=== PATIENT | female | born 1970 | race Caucasian/White ===

== ENCOUNTER → 2016-05-13 | Outpatient (CLI) | payer BC ==
[2016-05-13 12:53] LABS: ABSOLUTE LYMPHOCYTES (AUTO) 1.1 10^3/uL (0.5-4.7); ABSOLUTE MONOCYTES (AUTO) 0.3 10^3/uL (0.1-1.4); ABSOLUTE NEUT (AUTO) 4.3 10^3/uL (1.7-8.2); BASOPHILS % (AUTO) 0.4 % (0-2); EOSINOPHILS % (AUTO) 0.6 % (0-6); HEMATOCRIT 36.2 % (36.0-47.0); HEMOGLOBIN 12.4 g/dL (12.0-15.5); LYMPHOCYTES % (AUTO) 19.5 % (13-45); MEAN CORPUSCULAR HEMOGLOBIN 28.3 pg (27.0-33.4); MEAN CORPUSCULAR HGB CONC 34.4 g/dL (32.0-36.0); MEAN CORPUSCULAR VOLUME 82 fl (80-97); MONOCYTES % (AUTO) 5.8 % (3-13); SEGMENTED NEUTROPHILS % (AUTO) 73.7 % (42-78); WHITE BLOOD COUNT 5.9 10^3/uL (4.0-10.5)
[2016-05-13 13:12] LABS: ALANINE AMINOTRANSFERASE 34 U/L (9-52); ALKALINE PHOSPHATASE 53 U/L (38-126); ANION GAP 14 (5-19); ASPARTATE AMINO TRANSFERASE 55 U/L (14-36); BILIRUBIN,DIRECT 0.2 mg/dL (0.0-0.4); BILIRUBIN,TOTAL 0.7 mg/dL (0.2-1.3); BLOOD UREA NITROGEN 19 mg/dL (7-20); CARBON DIOXIDE 28 mmol/L (22-30); CHLORIDE 98 mmol/L (98-107); CREATININE RESULT 0.66 mg/dL (0.52-1.25); GLUCOSE 108 mg/dL (75-110); LIPASE 43.2 U/L (23-300); POTASSIUM 3.8 mmol/L (3.6-5.0); SODIUM 139.9 mmol/L (137-145); TOTAL PROTEIN 7.8 g/dL (6.3-8.2)
== END ==
LOC: LAB 12:33
PROVIDERS: ATTEND Obstetrics & Gynecology
DX: K52.9 Noninfective gastroenteritis and colitis, unspecified (principal)
CPT/HCPCS: 36415; 80053; 83690; 85025

== ENCOUNTER 2016-06-09 20:30 | Emergency (ER) | payer BC ==
[2016-06-09] MEDS ORDERED: LORAZEPAM 1 MG TABLET PO ONE ×2 (20:53→23:35)
[2016-06-09] MEDS ORDERED: NORMAL SALINE 1000 ML 1,000 ML IV PRN (20:53)
--- NOTE | 2016-06-09 21:00 | ER Document Report ---
ED General - General Chief Complaint: Probable Seizure Stated Complaint: SUGAR PROBLEM Time seen by provider: 20:54 Mode of Arrival: Medic Information source: Patient, Emergency Med Personnel Notes: This is a 46-year-old female with a history of hypertension (verapamil, Azilsartan, chlorthalidone), chronic back pain (baclofen, tramadol) brought in by EMS after a seizure at home. The patient's was at the scene and states that the patient all of a sudden dropped the remote sat forward and started to stare and was nonresponsive and then started having shaking. She was confused after the second episode which lasted 3 minutes. EMS arrived at the scene and found that the patient had a blood sugar of 70 and she was given 30 g of glucose. TRAVEL OUTSIDE OF THE [place] IN LAST 30 DAYS: No - HPI Onset: Just prior to arrival Onset/Duration: Gradual Quality of pain: No pain Severity: None Pain Level: Denies Associated symptoms: denies: Chest pain, Fever, Shortness of breath Exacerbated by: Denies Relieved by: Denies Similar symptoms previously: No Recently seen / treated by doctor: No - Related Data Allergies/Adverse Reactions: No Known Allergies Allergy (Verified 06/08/12 17:17) Past Medical History - General Information source: Patient - Social History Smoking Status: Never Smoker Cigarette use (# per day): No Chew tobacco use (# tins/day): No Frequency of alcohol use: None Drug Abuse: None Lives with: Family Family History: Reviewed & Not Pertinent Patient has suicidal ideation: No Patient has homicidal ideation: No - Past Medical History Cardiac Medical History: Reports: Hx Hypertension Denies: Hx Coronary Artery Disease, Hx Heart Attack Pulmonary Medical History: Denies: Hx Asthma, Hx Bronchitis, Hx COPD, Hx Pneumonia Neurological Medical History: Denies: Hx Cerebrovascular Accident, Hx Seizures Endocrine Medical History: Reports: None Renal/ Medical History: Reports: None Malignancy Medical History: Reports: None GI Medical History: Reports: None Musculoskeltal Medical History: Denies Hx Arthritis Psychiatric Medical History: Reports: None Traumatic Medical History: Reports: None Past Surgical History: Reports: Hx Section - x 2. Denies: Hx Pacemaker - Immunizations Immunizations up to date: Yes Hx Diphtheria, Pertussis, Tetanus Vaccination: Yes Review of Systems - Review of Systems Constitutional: denies: Chills, Fever EENT: No symptoms reported Cardiovascular: No symptoms reported Respiratory: No symptoms reported Gastrointestinal: No symptoms reported Genitourinary: No symptoms reported Female Genitourinary: No symptoms reported Musculoskeletal: No symptoms reported Skin: No symptoms reported Hematologic/Lymphatic: No symptoms reported Neurological/Psychological: See HPI Physical Exam - Vital signs Vitals: Temp Resp 98.1 F 20 06/09/16 20:43 06/09/16 20:43 Notes: Physical exam: GENERAL: 46-year-old female, alert and oriented 3, appears anxious HEAD: Atraumatic, normocephalic. EYES: Pupils equal round and reactive to light, extraocular movements intact, sclera anicteric, conjunctiva are normal. ENT: TMs normal, nares patent, oropharynx clear without exudates. Moist mucous membranes. NECK: Normal range of motion, supple without lymphadenopathy or JVD. LUNGS: Breath sounds clear to auscultation bilaterally and equal. No wheezes rales or rhonchi. HEART: Regular rate and rhythm without murmurs, rubs or gallops. ABDOMEN: Soft, normoactive bowel sounds. No tenderness to palpation. No guarding, no rebound. No masses appreciated. EXTREMITIES: Normal range of motion, no pitting or edema. No clubbing or cyanosis. NEUROLOGICAL: Cranial nerves II through XII grossly intact. Normal speech, moving all extremities PSYCH: Anxious SKIN: Warm, Dry, normal turgor, no rashes or lesions noted. 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 She remained in sinus rhythm is been doing fine. I have been in the room reevaluating her several times and she is stable. She is somewhat anxious about having any further seizures. I've had multiple long discussions with her and her at the bedside. The patient is quite adamant about not stopping the tramadol or the baclofen which she's been on a long time. I did tell them that these both contributed to seizures and that ultimately I would like her pain specialist to see if they can gradually wean the patient off of this and switch them to different pain medicines and muscle relaxants. Both of these are associated with a acute withdrawal if stopped abruptly. In the meantime, I will treat her with some Ativan which will help with anxiety , protect against further seizures and will also assist as a muscle relaxer. The patient was given IV magnesium to replace her magnesium and oral potassium to replace that. - Vital Signs Vital signs: Temp Pulse Resp BP Pulse Ox 98.1 F 19 95 06/09/16 20:43 06/09/16 22:00 06/09/16 22:00 - Laboratory Result Diagrams: 06/09/16 20:40 06/09/16 20:40 Laboratory results interpreted by me: 06/09/16 06/09/16 06/09/16 20:40 20:40 21:51 Hgb 11.7 L Hct 34.6 L Potassium 3.1 L Chloride 96 L Glucose 155 H Magnesium 1.5 L - Diagnostic Test Radiology reviewed: Image reviewed, Reports reviewed - Head CT shows no acute cranial process. Discharge - Discharge Clinical Impression: seizure Condition: Stable Disposition: HOME, SELF-CARE Additional Instructions: As we discussed, Your CAT scan of the head looked good. Your chest x-ray was normal Your kidney function tests looked great. You did have mildly low electrolytes potassium and magnesium and these were replaced. You were followed on the heart monitor and that looked good. Recommendations: 1. I would like you to call the [place] [facility] first thing in the morning. Tell them that you were seen in the emergency room after a seizure and the ER doctor would like you reevaluated to see if you can be switched off of the tramadol and placed to a alternative pain medicine because of the seizure risk of the tramadol. The muscle relaxer (baclofen) can also lower the seizure threshold and can contribute to his seizure. They can also reassess you regarding alternatives to baclofen. Both these medicines are associated with acute withdrawal symptoms if you stop them suddenly, therefore I don't want you to stop them altogether. If you can cut down on the quantity of tramadol, this may be helpful. 2. I would follow-up with Dr. Oscar early next week and bring a copy of today's CT, x-ray and lab tests with you when you go. 3. I am going to prescribe some Ativan short-term which will help with your anxiety. This medicine is also protective with seizures which is a positive. Finally, it is also a muscle relaxer and can help with that. Prescriptions: Lorazepam [Ativan 1 mg Tablet] 1 tab PO TID #20 tablet Referrals: DANELLE OSCAR MD [Primary Care Provider] - Follow up as needed JERALD ARRIAGA MD [ACTIVE STAFF] - Follow up as needed
[2016-06-09 21:07] LABS: ABSOLUTE LYMPHOCYTES (AUTO) 1.3 10^3/uL (0.5-4.7); ABSOLUTE MONOCYTES (AUTO) 0.4 10^3/uL (0.1-1.4); ABSOLUTE NEUT (AUTO) 4.1 10^3/uL (1.7-8.2); BASOPHILS % (AUTO) 0.4 % (0-2); EOSINOPHILS % (AUTO) 0.7 % (0-6); HEMATOCRIT 34.6 % (36.0-47.0); HEMOGLOBIN 11.7 g/dL (12.0-15.5); HGB HCT DIFFERENCE 0.5; LYMPHOCYTES % (AUTO) 21.8 % (13-45); MEAN CORPUSCULAR HEMOGLOBIN 28.1 pg (27.0-33.4); MEAN CORPUSCULAR HGB CONC 33.7 g/dL (32.0-36.0); MEAN CORPUSCULAR VOLUME 84 fl (80-97); MONOCYTES % (AUTO) 6.8 % (3-13); RED BLOOD COUNT 4.14 10^6/uL (3.72-5.28); RED CELL DISTRIBUTION WIDTH 13.7 % (11.5-14.0); SEGMENTED NEUTROPHILS % (AUTO) 70.3 % (42-78); WHITE BLOOD COUNT 5.8 10^3/uL (4.0-10.5)
[2016-06-09 21:10] LABS: ALANINE AMINOTRANSFERASE 27 U/L (9-52); ALBUMIN 4.6 g/dL (3.5-5.0); ALKALINE PHOSPHATASE 41 U/L (38-126); ANION GAP 17 (5-19); ASPARTATE AMINO TRANSFERASE 36 U/L (14-36); BILIRUBIN,DIRECT 0.3 mg/dL (0.0-0.4); BILIRUBIN,TOTAL 0.7 mg/dL (0.2-1.3); BLOOD UREA NITROGEN 10 mg/dL (7-20); CARBON DIOXIDE 27 mmol/L (22-30); CHLORIDE 96 mmol/L (98-107); CREATININE RESULT 0.68 mg/dL (0.52-1.25); GLUCOSE 155 mg/dL (75-110); POTASSIUM 3.1 mmol/L (3.6-5.0); TOTAL PROTEIN 7.3 g/dL (6.3-8.2)
[2016-06-09 21:39] LABS: THYROID STIMULATING HORMONE 1.95 uIU/mL (0.47-4.68)
[2016-06-09] MEDS ORDERED: POTASSIUM CHLORIDE 20 MEQ/15 ML UDCUP PO ONE ×2 (21:52→22:52)
[2016-06-09] MEDS ORDERED: MAGNESIUM SULFATE/D5W 100 ML IV SCH (23:00)
[2016-06-10 00:05] VITALS: BP 130/82
== END 2016-06-10 | disposition home or self-care (01) ==
LOC: ER 20:30
DX: R56.9 Unspecified convulsions (principal); F41.9 Anxiety disorder, unspecified; I10 Essential (primary) hypertension; M54.9 Dorsalgia, unspecified; G89.29 Other chronic pain; Z79.899 Other long term (current) drug therapy; Z79.891 Long term (current) use of opiate analgesic
CPT/HCPCS: 99285; 96361; 96365; 36415; 84439; 82962; 83735; 84443; 85025; 80053; 71020; 70450; J3475; J7030

== ENCOUNTER 2018-01-25 13:57 | Observation (INO) | payer BC ==
[2018-01-25] MEDS ORDERED: LORAZEPAM 1 MG TABLET PO ONE ×2 (14:53→20:37)
[2018-01-25] MEDS ORDERED: ASPIRIN 81 MG TABLET, CHEWABLE PO ONE (14:53)
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
[2018-01-25 15:25] LABS: ABSOLUTE MONOCYTES (AUTO) 0.3 10^3/uL (0.1-1.4); ABSOLUTE NEUT (AUTO) 3.3 10^3/uL (1.7-8.2); BASOPHILS % (AUTO) 0.6 % (0-2); EOSINOPHILS % (AUTO) 0.3 % (0-6); HEMATOCRIT 39.1 % (36.0-47.0); HEMOGLOBIN 13.8 g/dL (12.0-15.5); LYMPHOCYTES % (AUTO) 21.5 % (13-45); MEAN CORPUSCULAR HEMOGLOBIN 31.8 pg (27.0-33.4); MEAN CORPUSCULAR HGB CONC 35.2 g/dL (32.0-36.0); MEAN CORPUSCULAR VOLUME 90 fl (80-97); MONOCYTES % (AUTO) 5.5 % (3-13); PLATELET COUNT 257 10^3/uL (150-450); RED BLOOD COUNT 4.33 10^6/uL (3.72-5.28); RED CELL DISTRIBUTION WIDTH 12.8 % (11.5-14.0); SEGMENTED NEUTROPHILS % (AUTO) 72.1 % (42-78); TOTAL CELLS COUNTED % (AUTO) 100 %; WHITE BLOOD COUNT 4.5 10^3/uL (4.0-10.5)
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
[2018-01-25 16:59] LABS: ALANINE AMINOTRANSFERASE 17 U/L (9-52); ALBUMIN 4.3 g/dL (3.5-5.0); ALKALINE PHOSPHATASE 43 U/L (38-126); ANION GAP 12 (5-19); ASPARTATE AMINO TRANSFERASE 19 U/L (14-36); BILIRUBIN,DIRECT 0.1 mg/dL (0.0-0.4); BILIRUBIN,TOTAL 0.5 mg/dL (0.2-1.3); BLOOD UREA NITROGEN 10 mg/dL (7-20); CALCIUM 9.6 mg/dL (8.4-10.2); CARBON DIOXIDE 25 mmol/L (22-30); CHLORIDE 102 mmol/L (98-107); CREATINE KINASE 49 U/L (30-135); GLUCOSE 97 mg/dL (75-110); PHOSPHORUS 2.6 mg/dL (2.5-4.5); POTASSIUM 4.2 mmol/L (3.6-5.0); SODIUM 139.2 mmol/L (137-145); TOTAL PROTEIN 6.7 g/dL (6.3-8.2)
[2018-01-25 17:08] LABS: CREATINE KINASE MB 0.42 ng/mL (<4.55)
[2018-01-25 17:14] LABS: TROPONIN I < 0.012 ng/mL
--- NOTE | 2018-01-25 18:07 | RADIOLOGY REPORT (SQ) ---
EXAM DESCRIPTION: CTA CHEST COMPLETED DATE/TIME: 01/25/2018 5:51 pm REASON FOR STUDY: sudden, palpitations, sob, tachycardia. +PERC COMPARISON: 06/08/2012 TECHNIQUE: CT scan of the chest performed using helical scanning technique with dynamic intravenous contrast injection. Images reviewed with lung, soft tissue and bone windows. Reconstructed coronal and sagittal MPR images reviewed. Additional 3 dimensional post-processing performed to develop Maximal Intensity Projection images (ND P). All images stored on PACS. All CT scanners at this facility use dose modulation, iterative reconstruction, and/or weight based d osing when appropriate to reduce radiation dose to as low as reasonably achievable (ALARA). [facility]: Dose Right [facility]: CareDose [facility]: Dose Right [facility]: Teradose 4D [facility]: [employer] CONTRAST TYPE AND DOSE: contrast/concentration: Isovue 350.00 mg/ml; Total Contrast Delivered: 64.0 ml; Total Saline Delivered: 83.0 ml Contrast bolus optimized for the pulmonary arteries. Not diagnostic for the aorta. RENAL FUNCTION: BUN 10 creatinine 0.65 RADIATION DOSE: CT Rad equipment meets quality standard of care and radiation dose reduction techniq ues were employed. CTDIvol: 8.1 - 16.9 mGy. DLP: 305 mGy-cm. . LIMITATIONS: None. FINDINGS: LUNGS AND PLEURA: No masses, infiltrates, or pneumothorax. No pleural effusions or pleura l calcifications. AORTA AND GREAT VESSELS: No aneurysm. Contrast bolus not optimized for the aorta. HEART: No pericardial effusion. No significant coronary artery calcifications. PULMONARY ARTERIES: No emboli visualized in the main pulmonary arteries or the segmental branches. HILAR AND MEDIASTINAL STRUCTURES: No identified masses or abnormal nodes. HARDWARE: None in the chest. UPPER ABDOMEN: No significant findings. Limited exam. THYROID AND OTHER SOFT TISSUES: No masses. No adenopathy. BONES: No acute or significant finding. 3D MIPS: Confirm above findings. OTHER: No other significant finding. IMPRESSION: NORMAL CTA OF THE CHEST. NO PULMONARY EMBOLI. COMMENT: Quality ID # [id number]: Final reports with documentation of one or more dose reduction techniques (e.g., Automated exposure control, adjustment of the mA and/or kV according to patient size, use of iterative reconstruction technique) TECHNICAL DOCUMENTATION: JOB ID: [id number] [employer]- All Rights Reserved Reading location - IP/workstation name: [email or web address]
[2018-01-25] MEDS ORDERED: NORMAL SALINE 250 ML IV PRN (18:27)
[2018-01-25] MEDS ORDERED: NORMAL SALINE 500 ML IV PRN (18:28)
[2018-01-25] MEDS ORDERED: POTASSIUM CHLORIDE 10 MEQ CAPSULE.ER PO ONE (20:43)
[2018-01-25] MEDS ORDERED: (PENDING PHARMACY ID) (Oxycodone Hcl/Acetaminophen [Oxycodone-Acetaminophen 10-325] 1 TAB) PO PRN (21:11)
[2018-01-25] MEDS ORDERED: MAG HYDROX/AL HYDROX/SIMETH SUSP 30 ML UDCUP PO PRN (21:13)
[2018-01-25] MEDS ORDERED: NITROGLYCERIN 0.4 MG/TAB 25 TAB/BOTTLE SL PRN (21:13)
[2018-01-25] MEDS ORDERED: HYDRALAZINE HCL INJ/PF 20 MG/1 ML SDV IV PRN (21:16)
[2018-01-25] MEDS ORDERED: OXYCODONE-ACETAMINOPHEN 5-325 MG TABLET PO PRN (21:33)
[2018-01-25] MEDS ORDERED: OXYCODONE HCL IR 5 MG TABLET PO PRN (21:34)
[2018-01-25] MEDS: HEPARIN SOD (PORCINE) 5,000 UNIT/ML 1 ML SYRINGE SUBCUT SCH (21:55)
[2018-01-25] MEDS: DIAZEPAM 5 MG TABLET PO SCH (21:55)
[2018-01-25] MEDS ORDERED: ATORVASTATIN CALCIUM 40 MG TABLET PO SCH (22:00)
--- NOTE | 2018-01-25 22:38 | EKG REPORT ---
SEVERITY:- NORMAL ECG - SINUS RHYTHM : Confirmed by: Ra Barrett 25-Jan-2018 22:38:03
--- NOTE | 2018-01-25 22:38 | EKG REPORT ---
SEVERITY:- NORMAL ECG - SINUS RHYTHM : Confirmed by: Ra Barrett 25-Jan-2018 22:38:08
[2018-01-26] MEDS: HALOPERIDOL LACTATE INJ 5 MG/1 ML VIAL IV PRN ×2 (01:10→14:20)
[2018-01-26 01:50] LABS: TROPONIN I < 0.012 ng/mL
[2018-01-26] MEDS: HEPARIN SOD (PORCINE) 5,000 UNIT/ML 1 ML SYRINGE SUBCUT SCH ×2 (05:18→14:31)
--- NOTE | 2018-01-26 06:43 | PDOC H&P ---
History of Present Illness Admission Date/PCP: 01/25/18 21:00 DANELLE OSCAR MD Patient complains of: Palpitations, shortness of breath and chest pressure History of Present Illness: KELLY NARANJO is a 48 year old female with past medical history of hypertension and benzodiazepine dependent anxiety disorder with panic. Patient presents with 4 days of insomnia following abrupt discontinuation of Ativan 2 mg every 8 hours. She felt these medications made her feel loopy however admits several years of benzodiazepine dependence. Over the last 48 hours she has had exceptional palpitations, shortness of breath and chest pressure. In the emergency room she is found to have uncontrolled hypertension, anxiety with tachycardia despite 4 mg of Ativan. Initial troponin was below detectable level repeat is 0.025. She is referred to the hospitalist for admission. Past Medical History Cardiac Medical History: Reports: Hypertension Denies: Coronary Artery Disease, Myocardial Infarction Pulmonary Medical History: Denies: Asthma, Bronchitis, Chronic Obstructive Pulmonary Disease (COPD), Pneumonia Neurological Medical History: Denies: Seizures Musculoskeltal Medical History: Denies: Arthritis Psychiatric Medical History: Reports: Depression, General Anxiety Disorder, Tobacco Dependency Hematology: Denies: Anemia Past Surgical History Past Surgical History: Reports: Section - x 2 Denies: Pacemaker Social History Information Source: Patient Lives with: Spouse/Significant other Smoking Status: Never Smoker Frequency of Alcohol Use: Rare Hx Recreational Drug Use: No Drugs: None Hx Prescription Drug Abuse: No - Advance Directive Resuscitation Status: Full Code Family History Family History: COPD Parental Family History Reviewed: Yes Children Family History Reviewed: Yes Sibling(s) Family History Reviewed.: Yes Medication/Allergy Home Medications: Butalb/Acetaminophen/Caffeine [Fioricet (50-325-40 mg) Tablet] 1 tab PO DAILYP PRN 06/22/13 Azilsartan Med/Chlorthalidone [Edarbyclor 40-12.5 mg Tablet] 1 tab PO DAILY 08/07 Lorazepam [Lorazepam] 2 mg PO Q8HP PRN 01/25/18 Oxycodone HCl/Acetaminophen [Oxycodone-Acetaminophen 10-325] 1 tab PO Q8HP PRN 01/25/18 Verapamil HCl [Verapamil ER] 240 mg PO DAILY 01/25/18 Allergies/Adverse Reactions: No Known Allergies Allergy (Verified 01/25/18 13:58) Review of Systems Constitutional: PRESENT: as per HPI, anorexia. ABSENT: chills, fatigue, weakness Eyes: ABSENT: visual disturbances Ears: ABSENT: hearing changes Cardiovascular: PRESENT: as per HPI, dyspnea on exertion, palpitations. ABSENT : chest pain, edema, orthropnea Respiratory: PRESENT: as per HPI, dyspnea. ABSENT: cough, hemoptysis Gastrointestinal: ABSENT: abdominal pain, constipation, diarrhea, hematemesis, hematochezia, nausea, vomiting Genitourinary: ABSENT: dysuria, hematuria Musculoskeletal: ABSENT: joint swelling Integumentary: ABSENT: rash, wounds Neurological: ABSENT: abnormal gait, abnormal speech, confusion, dizziness, focal weakness, syncope Psychiatric: PRESENT: anxiety - Tremulous with pressured speech Endocrine: ABSENT: cold intolerance, heat intolerance, polydipsia, polyuria Hematologic/Lymphatic: ABSENT: easy bleeding, easy bruising Physical Exam Vital Signs: Temp Pulse Resp BP Pulse Ox 98.9 F 78 16 103/60 96 01/26/18 03:16 01/26/18 03:16 01/26/18 03:16 01/26/18 03:16 01/26/18 03:16 Intake & Output 01/24/18 01/25/18 01/26/18 11:59 11:59 11:59 Weight 69.2 kg General appearance: PRESENT: cooperative, mild distress, thin. ABSENT: disheveled Head exam: PRESENT: atraumatic, normocephalic Eye exam: PRESENT: conjunctiva pink, EOMI, PERRLA. ABSENT: scleral icterus Ear exam: PRESENT: normal external ear exam Mouth exam: PRESENT: moist, tongue midline Neck exam: ABSENT: carotid bruit, JVD, lymphadenopathy, thyromegaly Respiratory exam: PRESENT: clear to auscultation dona. ABSENT: rales, rhonchi, wheezes Cardiovascular exam: PRESENT: RRR. ABSENT: diastolic murmur, rubs, systolic murmur Pulses: PRESENT: normal dorsalis pedis pul Vascular exam: PRESENT: normal capillary refill GI/Abdominal exam: PRESENT: normal bowel sounds, soft. ABSENT: distended, guarding, mass, organolmegaly, rebound, tenderness Rectal exam: PRESENT: deferred Extremities exam: PRESENT: full ROM. ABSENT: calf tenderness, clubbing, pedal edema Neurological exam: PRESENT: alert, awake, oriented to person, oriented to place , oriented to time, oriented to situation, CN II-XII grossly intact. ABSENT: motor sensory deficit Psychiatric exam: PRESENT: anxious, normal mood. ABSENT: homicidal ideation, suicidal ideation Skin exam: PRESENT: dry, intact, warm. ABSENT: cyanosis, rash Results Laboratory Results: 01/26/18 00:59 CK-MB (CK-2) 0.40 Troponin I < 0.012 Impressions: Chest/Abdomen CTA 01/25/18 16:01 IMPRESSION: NORMAL CTA OF THE CHEST. NO PULMONARY EMBOLI. Assessment & Plan - Diagnosis (1) Anxiety Is this a current diagnosis for this admission?: Yes Plan: Benzodiazepine weaning, Haldol as needed follow-up TSH (2) Chest pain Qualifiers: Chest pain type: unspecified Qualified Code(s): R07.9 - Chest pain, unspecified Is this a current diagnosis for this admission?: Yes Plan: Atypical chest pain though the patient's pain is atypical there are multiple risk factors for coronary artery disease and subsequently will observe and evaluation of acute coronary syndrome versus coronary artery disease with anginal equivalents. Cardiac monitoring blood pressure Q6 hours ,TSH, lipid profile, serial cardiac enzymes and cardiac stress test - Time Time Spent: 30 to 50 Minutes - Inpatient Certification Medical Necessity: Need Close Monitoring Due to Risk of Patient Decompensation
[2018-01-26 07:48] LABS: CREATINE KINASE 30 U/L (30-135); TRIGLYCERIDES 120 mg/dL (<150)
[2018-01-26 07:58] LABS: CREATINE KINASE MB 0.26 ng/mL (<4.55)
[2018-01-26 08:00] LABS: DIRECT LDL 59 mg/dL (<100); TROPONIN I < 0.012 ng/mL
[2018-01-26] MEDS ORDERED: (PENDING PHARMACY ID) (Verapamil Hcl [Verapamil Er] 240 MG) PO SCH (10:00)
[2018-01-26] MEDS ORDERED: ASPIRIN 325 MG TABLET, ENT COATED PO SCH (10:00)
[2018-01-26] MEDS ORDERED: VERAPAMIL HCL 240 MG TABLET.SA PO SCH (10:00)
[2018-01-26] MEDS: DOCUSATE SODIUM 100 MG CAPSULE PO SCH ×2 (11:14→18:34)
[2018-01-26] MEDS: DIAZEPAM 5 MG TABLET PO SCH (11:14)
[2018-01-26] MEDS ORDERED: REGADENOSON INJ 0.4 MG/5 ML DISP.SYRIN IV ONE (12:27)
[2018-01-26] MEDS ORDERED: LORAZEPAM 1 MG TABLET PO ONE (16:30)
[2018-01-26 16:48] LABS: CREATINE KINASE MB < 0.22 ng/mL (<4.55); TROPONIN I < 0.012 ng/mL
--- NOTE | 2018-01-26 17:28 | DRAGON STRESS TEST REPORT ---
Intravenous Lexiscan Cardiolite stress test using single photon emmision computerized tomography. Date of procedure: 01/26/2018.Ordering Provider: Dr. Reyes Zapata.Patient's status: In Patient Indication: Chest pain. Coronary risk factors: Age, hypertension, and dyslipidemia. Resting EKG: Sinus Rhythm. Within Normal Limits. Stress EKG: No changes of ischemia. The patient had no chest pain or discomfort, and there were no arrhythmias seen. Reason for termination: Protocol. Conclusions: Normal EKG and hemodynamic response to IV Lexiscan. Nuclear data: At rest the patient was given 10.74 millicuries of technetium 99m sestamibi injected intravenously. As per protocol rest non gated SPECT images were obtained. Subsequently the patient was given intravenous Lexiscan at a dose of 0.4 mg in 5 mL intravenously, followed by flush with normal saline. Subsequently the stress dose of 32.4 millicuries of technetium 99m sestamibi was injected intravenously. As per protocol stress gated images were obtained. Nuclear interpretation: Review of images showed that all segments of the myocardium had normal perfusion at rest, and normal perfusion post stress with IV Lexiscan. All segments of the myocardium had normal motion, contraction, and thickening by gated study. T. I D. ratio was normal at 1.09. There is no transient ischemic calcification of the left ventricle. Computer read rest, and stress left ventricular ejection fraction were 73 %, and 70 %, respectively. Conclusion: 1. There is no scintigraphic evidence of Lexiscan induced myocardial ischemia. 2. There is no scintigraphic evidence of myocardial infarction/scar. Recommendations: Aggressive risk factor modification, and treating the underlying co- morbidities. MTDD
[2018-01-26 17:40] VITALS: BP 123/78
--- NOTE | 2018-01-27 16:19 | PDOC DISCHARGE SUMMARY ---
General - Admit/Disc Date/PCP Admission Date/Primary Care Provider: 01/25/18 21:00 DANELLE OSCAR MD Discharge Date: 01/26/18 - Discharge Diagnosis (1) Chest pain Is this a current diagnosis for this admission?: Yes Summary: The patient was admitted with atypical chest pain; but with multiple risk factors: Age, hypertension, overweight, and tobacco dependence. EKG demonstrated sinus rhythm. CTA of the chest and abdomen was normal; no evidence of pulmonary emboli. Serial troponins were negative x5. Nuclear stress test was benign; no evidence of Lexiscan-induced myocardial ischemia or myocardial infarction/scar. The patient was admitted to the medical floor and continuous cardiac telemetry. Her chest pain workup was benign with normal EKG, laboratory evaluation, and nuclear stress test. The patient did admit that she recently stopped all benzodiazepines and feels that her discomfort is likely anxiety induced. At time of discharge, the patient was hemodynamically stable, asymptomatic, and requesting to be discharged home. She is encouraged to follow-up with her primary care provider within 1 week and to return to the emergency department as needed. (2) Anxiety Is this a current diagnosis for this admission?: Yes Summary: Patient endorses chronic anxiety; she reports that she was prescribed Ativan 2 mg 2-3 times daily which she took on a regular basis. She reports that one week ago she threw away her medication hoping to be able to stop. She stated shortly after that she began to experiencing chest discomfort which prompted her to be evaluated in the emergency department. She believes that her anxiety is the source of her chest discomfort and requests resumption of anxiety medications. She is encouraged to meet with her primary care provider to discuss SSNRI/SSRI for prevention of generalized anxiety symptoms. She is cautioned against abrupt cessation of medications without first speaking with her primary care provider. At discharge she is provided a prescription for Ativan 0.5 mg 1-2 tabs every 8 hours #8. To follow-up with her PCP next week. (3) Overweight (BMI 25.0-29.9) Is this a current diagnosis for this admission?: Yes Summary: Dietary discretion is advised; recommend getting a regular physical activity regiment. (4) Tobacco dependence Is this a current diagnosis for this admission?: Yes Summary: Smoking cessation is encouraged. - Additional Information Resuscitation Status: Full Code Discharge Diet: Cardiac Discharge Activity: Activity As Tolerated, Balance Activity w/Rest, Slowly Increase Activity Prescriptions: Lorazepam [Ativan 0.5 mg Tablet] 1 - 2 tab PO Q8HP PRN #12 tab PRN Reason: Anxiety Home Medications: Butalb/Acetaminophen/Caffeine [Fioricet (50-325-40 mg) Tablet] 1 tab PO DAILYP PRN 06/22/13 Azilsartan Med/Chlorthalidone [Edarbyclor 40-12.5 mg Tablet] 1 tab PO DAILY 08/07 Oxycodone HCl/Acetaminophen [Oxycodone-Acetaminophen 10-325] 1 tab PO Q8HP PRN 01/25/18 Verapamil HCl [Verapamil ER] 240 mg PO DAILY 01/25/18 Lorazepam [Ativan 0.5 mg Tablet] 1 - 2 tab PO Q8HP PRN #12 tab 01/26/18 History of Present Illness History of Present Illness: Per H&P by Dr. Zapata: KELLY NARANJO is a 48 year old female with past medical history of hypertension and benzodiazepine dependent anxiety disorder with panic. Patient presents with 4 days of insomnia following abrupt discontinuation of Ativan 2 mg every 8 hours. She felt these medications made her feel loopy however admits several years of benzodiazepine dependence. Over the last 48 hours she has had exceptional palpitations, shortness of breath and chest pressure. In the emergency room she is found to have uncontrolled hypertension, anxiety with tachycardia despite 4 mg of Ativan. Initial troponin was below detectable level repeat is 0.025. She is referred to the hospitalist for admission. Physical Exam Vital Signs: Temp Pulse Resp BP Pulse Ox 98.5 F 79 16 123/78 98 01/26/18 17:39 01/26/18 17:39 01/26/18 17:39 01/26/18 17:39 01/26/18 17:39 Intake & Output 01/26/18 01/27/18 01/28/18 06:59 06:59 06:59 Intake Total 0 266 Balance 0 266 Weight 69.2 kg General appearance: PRESENT: no acute distress, cooperative, well-developed, well-nourished Head exam: PRESENT: atraumatic, normocephalic Eye exam: PRESENT: conjunctiva pink, EOMI, PERRLA. ABSENT: scleral icterus Ear exam: PRESENT: normal external ear exam Mouth exam: PRESENT: moist, tongue midline Neck exam: ABSENT: carotid bruit, JVD, lymphadenopathy, thyromegaly Respiratory exam: PRESENT: clear to auscultation dona, symmetrical, unlabored. ABSENT: rales, rhonchi, wheezes Cardiovascular exam: PRESENT: RRR. ABSENT: diastolic murmur, rubs, systolic murmur Pulses: PRESENT: normal dorsalis pedis pul Vascular exam: PRESENT: normal capillary refill GI/Abdominal exam: PRESENT: normal bowel sounds, soft. ABSENT: distended, guarding, mass, organolmegaly, rebound, tenderness Rectal exam: PRESENT: deferred Extremities exam: PRESENT: full ROM. ABSENT: calf tenderness, clubbing, pedal edema Neurological exam: PRESENT: alert, awake, oriented to person, oriented to place , oriented to time, oriented to situation, CN II-XII grossly intact. ABSENT: motor sensory deficit Psychiatric exam: PRESENT: anxious, appropriate affect, normal mood. ABSENT: homicidal ideation, suicidal ideation Skin exam: PRESENT: dry, intact, warm. ABSENT: cyanosis, rash Results Laboratory Results: 01/26/18 01/26/18 01/26/18 00:59 07:04 07:04 Creatine Kinase 30 CK-MB (CK-2) 0.40 0.26 Troponin I < 0.012 < 0.012 01/26/18 15:55 Creatine Kinase CK-MB (CK-2) < 0.22 Troponin I < 0.012 Impressions: Chest/Abdomen CTA 01/25/18 16:01 IMPRESSION: NORMAL CTA OF THE CHEST. NO PULMONARY EMBOLI. Qualifiers - * PATIENT BEING DISCHARGED WITH ANY OF THE FOLLOWING DIAGNOSIS: No Plan Discharge Plan: Discharged home with self-care. Follow-up with primary care provider within 1 week. Return to emergency department as needed for concerning symptoms. Time Spent: Less than 30 Minutes
== END 2018-01-26 18:43 | disposition home or self-care (01) ==
LOC: ER 13:57 → EH 21:00 → 4N 01-26 00:19
PROVIDERS: ADMIT Internal Medicine; ATTEND Internal Medicine
DX: R07.89 Other chest pain (principal); F41.0 Panic disorder [episodic paroxysmal anxiety]; E66.3 Overweight; Z68.25 Body mass index [BMI] 25.0-25.9, adult; F17.200 Nicotine dependence, unspecified, uncomplicated; F13.20 Sedative, hypnotic or anxiolytic dependence, uncomplicated; I10 Essential (primary) hypertension; G47.00 Insomnia, unspecified; R63.0 Anorexia; Z79.899 Other long term (current) drug therapy; Z82.5 Family history of asthma and other chronic lower respiratory diseases; Z23 Encounter for immunization
CPT/HCPCS: 93005; 99285; 96361; 96374; 36415 ×2; 82553 ×2; 82550 ×2; 83735; 84100; 84443; 85025; 80053; 84484 ×2; 80061; 93017; 78452; 71275; 90686; 93010; G0378 ×2; G0008; A9500; J2785; J1644 ×2; J1630; J3490; J7040; Q9969; 90471

== ENCOUNTER 2019-07-18 15:29 | Emergency (ER) | payer BC ==
[2019-07-18] MEDS ORDERED: MORPHINE SULFATE 10 MG/ML INJ IV ONE (16:52)
--- NOTE | 2019-07-18 17:14 | ER Document Report ---
ED Medical Screen (RME) - General Chief Complaint: Flank Pain Stated Complaint: FALL/BACK PAIN Time Seen by Provider: 07/18/19 16:44 Primary Care Provider: DANELLE OSCAR MD [Primary Care Provider] - Follow up as needed TRAVEL OUTSIDE OF THE [place] IN LAST 30 DAYS: No - HPI Notes: 07/18/19 16:52 49-year-old female presents to the emergency room for complaints of right flank pain/thoracic pain after she fell into an sharp object last night while she was walking in the dark. States she tripped over her daughter's toy. reports severe pain. When she woke up this morning she could barely move due to the intensity of the pain. She states that it feels like "something internal". Denies being on any blood thinners. Has not tried any pyhr-vwl-tylpnfd medications. Worse with time, nothing makes better. Has not tried any heat or icing. Reports pain from mid thoracic to lower back that extends to the RUQ and RLQ. Denies any chest pain, shortness of breath, nausea vomiting or diarrhea. Patient states pain is worse than her 2 sections. I have greeted and performed a rapid initial assessment of this patient. A comprehensive ED assessment and evaluation of the patient, analysis of test results and completion of the medical decision making process will be conducted by additional ED providers. PHYSICAL EXAMINATION: GENERAL: Well-appearing, well-nourished and in moderate pain CV: s1, s2 regular LUNGS: No respiratory distress Musculoskeletal: Normal range of motion. Pain on palpation of right flank, right lumbar spine, right lower quadrant, right upper quadrant. NEUROLOGICAL: Normal speech, normal gait. SKIN: Warm, Dry, normal turgor, no rashes or lesions noted. Scant ecchymosis to right flank area - Related Data Allergies/Adverse Reactions: No Known Allergies Allergy (Verified 01/25/18 13:58) Past Medical History - Social History Frequency of alcohol use: Occasional Drug Abuse: None Family history: None - Past Medical History Cardiac Medical History: Reports: Hx Hypertension Denies: Hx Coronary Artery Disease, Hx Heart Attack Pulmonary Medical History: Denies: Hx Asthma, Hx Bronchitis, Hx COPD, Hx Pneumonia Neurological Medical History: Denies: Hx Cerebrovascular Accident, Hx Seizures Renal/ Medical History: Denies: Hx Peritoneal Dialysis Musculoskeltal Medical History: Denies Hx Arthritis Psychiatric Medical History: Reports: Hx Depression Past Surgical History: Reports: Hx Section - x 2. Denies: Hx Pacemaker - Immunizations Immunizations up to date: Yes Hx Diphtheria, Pertussis, Tetanus Vaccination: Yes Physical Exam - Vital signs Vitals: Temp Pulse Resp BP Pulse Ox 97.6 F 92 18 130/94 H 96 07/18/19 16:03 07/18/19 16:03 07/18/19 16:03 07/18/19 16:03 07/18/19 16:03 Course - Vital Signs Vital signs: Temp Pulse Resp BP Pulse Ox 97.6 F 92 18 130/94 H 96 07/18/19 16:41 07/18/19 16:03 07/18/19 16:03 07/18/19 16:03 07/18/19 16:03 Doctor's Discharge - Discharge Referrals: DANELLE OSCAR MD [Primary Care Provider] - Follow up as needed
[2019-07-18 18:14] LABS: ABSOLUTE MONOCYTES (AUTO) 0.3 10^3/uL (0.1-1.4); ABSOLUTE NEUT (AUTO) 3.4 10^3/uL (1.7-8.2); BASOPHILS % (AUTO) 0.5 % (0-2); EOSINOPHILS % (AUTO) 0.4 % (0-6); HEMATOCRIT 40.8 % (36.0-47.0); HEMOGLOBIN 14.3 g/dL (12.0-15.5); LYMPHOCYTES % (AUTO) 21.4 % (13-45); MEAN CORPUSCULAR HEMOGLOBIN 32.2 pg (27.0-33.4); MEAN CORPUSCULAR HGB CONC 35.1 g/dL (32.0-36.0); MEAN CORPUSCULAR VOLUME 92 fl (80-97); MONOCYTES % (AUTO) 5.6 % (3-13); PLATELET COUNT 226 10^3/uL (150-450); RED BLOOD COUNT 4.45 10^6/uL (3.72-5.28); RED CELL DISTRIBUTION WIDTH 12.7 % (11.5-14.0); SEGMENTED NEUTROPHILS % (AUTO) 72.1 % (42-78); TOTAL CELLS COUNTED % (AUTO) 100 %; WHITE BLOOD COUNT 4.7 10^3/uL (4.0-10.5)
[2019-07-18] MEDS ORDERED: HYDROCODONE/ACETAMINOPHEN 5-325 MG TABLET PO ONE (18:19)
[2019-07-18 18:29] LABS: ANION GAP 7 (5-19); BLOOD UREA NITROGEN 16 mg/dL (7-20); CALCIUM 9.3 mg/dL (8.4-10.2); CARBON DIOXIDE 28 mmol/L (22-30); CHLORIDE 103 mmol/L (98-107); GLUCOSE 97 mg/dL (75-110); POTASSIUM 4.4 mmol/L (3.6-5.0)
--- NOTE | 2019-07-18 19:34 | RADIOLOGY REPORT (SQ) ---
EXAM DESCRIPTION: CT ABD/PELVIS WITH IV ONLY IMAGES COMPLETED DATE/TIME: 07/18/2019 7:20 pm REASON FOR STUDY: severe R sided pain,fell onto object at night COMPARISON: None. TECHNIQUE: CT scan of the abdomen and pelvis performed using helical scanning technique with dynamic intravenous contrast injection. No oral contrast. Images reviewed with lung, soft tissue, and bone windows. Reconstructed coronal and sagittal MPR images reviewed. Delayed images for evaluation of the urinary system also acquired. All images stored on PACS. All CT scanners at this facility use dose modulation, iterative reconstruction, and/or weight based d osing when appropriate to reduce radiation dose to as low as reasonably achievable (ALARA). [facility]: Dose Right [facility]: CareDose [facility]: Dose Right [facility]: Teradose 4D [facility]: X-1 CONTRAST TYPE AND DOSE: contrast/concentration: Isovue 350.00 mg/ml; Total Contrast Delivered: 86.0 ml; Total Saline Delivered: 69.0 ml RENAL FUNCTION: BUN 16 creatinine 0.64 RADIATION DOSE: CT Rad equipment meets quality standard of care and radiation dose reduction techniq ues were employed. CTDIvol: NaN - NaN mGy. DLP: 0 mGy-cm.. LIMITATIONS: None. FINDINGS: LOWER CHEST: No significant findings. No nodules or infiltrates. LIVER: Normal size. No masses. No dilated ducts. The liver is intact. SPLEEN: Normal size. No focal lesions. PANCREAS: No masses. No significant calcifications. No adjacent inflammation or peripancreatic fluid collections. Pancreatic duct not dilated. GALLBLADDER: No identified stones by CT criteria. No inflammatory changes to suggest cholecystitis. ADRENAL GLANDS: No significant masses or asymmetry. RIGHT KIDNEY AND URETER: No solid masses. No renal injury. No significant calcifications. No hyd ronephrosis or hydroureter. LEFT KIDNEY AND URETER: No solid masses. No significant calcifications. No hydronephrosis or hydr oureter. AORTA AND VESSELS: No aneurysm. No dissection. Renal arteries, SMA, celiac without stenosis. RETROPERITONEUM: No retroperitoneal adenopathy, hemorrhage or masses. BOWEL AND PERITONEAL CAVITY: No masses or inflammatory changes. No free fluid or peritoneal masses. APPENDIX: Normal. PELVIS: No mass. No free fluid. Normal bladder. ABDOMINAL WALL: No masses. No hernias. BONES: No significant or acute findings. OTHER: No other significant finding. IMPRESSION: No significant acute finding in the abdomen or pelvis. Specifically, there is no injury to the liver or right kidney. No fractures are seen. TECHNICAL DOCUMENTATION: JOB ID: [id number] Quality ID # [id number]: Final reports with documentation of one or more dose reduction techniques (e.g., Au tomated exposure control, adjustment of the mA and/or kV according to patient size, use of iterative reconstruction technique) 2010 [employer]- All Rights Reserved Reading location - IP/workstation name: [email or web address]
--- NOTE | 2019-07-19 00:49 | ER Document Report ---
ED Medical Screen (RME) - General Chief Complaint: Flank Pain Stated Complaint: FALL/BACK PAIN Time Seen by Provider: 07/18/19 16:44 Primary Care Provider: DANELLE OSCAR MD [Primary Care Provider] - Follow up as needed Notes: Patient is a 49-year-old female who has been in the emergency room approximately 8-1/2 hours. She had labs ordered as well as a CT abdomen and pelvis because she is sustained a fall the night before while sleeping with her daughter in her bunk beds. Patient has been waiting to be seen by a physician in the back was given morphine here earlier today she states had no relief. She came to my office as I was triaging patients and requested that she wanted the results of her lab work and her CT and wanted to find out showed any internal damage. Patient is requesting that we do something with her at this point. She is complaining of pain and discomfort. Physical exam shows patient to be a well-nourished well-developed 49-year-old female who is in no apparent distress but does appear somewhat uncomfortable. Cardiac regular rate and rhythm 90 murmurs. Lungs: Bilateral breath sounds breath sounds decreased but clear auscultation. Back; examination patient's area of concern in a sitting position in the triage room shows mild tenderness to palpation along the right hip area. This is more tissue than bone discomfort. Patient is ambulatory without any discomfort when distracted while walking and talking. I offered patient to send her home with a little hydrocodone and muscle relaxer for her discomfort to see if this would help alleviate it. That is when patient informed me that she is in pain management and gets Percocet 10 mg which did not help her pain and the morphine has not helped her pain. I have informed patient that is about all I can do at this point without having a room to physically assess her much better and that she wanted to wait again I could put her back in her line to be seen by physician in the back. I did tell her I cannot guarantee her that she would get any stronger pain medication than what she is already received. But patient has elected to remain in line to be seen by a physician in the back. TRAVEL OUTSIDE OF THE [place] IN LAST 30 DAYS: No - HPI Onset/Duration: Sudden, Persistent Quality of pain: Stabbing, Throbbing - Related Data Allergies/Adverse Reactions: No Known Allergies Allergy (Verified 01/25/18 13:58) Past Medical History - Social History Frequency of alcohol use: Occasional Drug Abuse: None Family history: None - Past Medical History Cardiac Medical History: Reports: Hx Hypertension Denies: Hx Coronary Artery Disease, Hx Heart Attack Pulmonary Medical History: Denies: Hx Asthma, Hx Bronchitis, Hx COPD, Hx Pneumonia Neurological Medical History: Denies: Hx Cerebrovascular Accident, Hx Seizures Renal/ Medical History: Denies: Hx Peritoneal Dialysis Musculoskeltal Medical History: Denies Hx Arthritis Psychiatric Medical History: Reports: Hx Depression Past Surgical History: Reports: Hx Section - x 2. Denies: Hx Pacemaker - Immunizations Immunizations up to date: Yes Hx Diphtheria, Pertussis, Tetanus Vaccination: Yes Physical Exam - Vital signs Vitals: Temp Pulse Resp BP Pulse Ox 97.6 F 92 18 130/94 H 96 07/18/19 16:03 07/18/19 16:03 07/18/19 16:03 07/18/19 16:03 07/18/19 16:03 Course - Vital Signs Vital signs: Temp Pulse Resp BP Pulse Ox 97.6 F 92 18 130/94 H 96 07/18/19 16:41 07/18/19 16:03 07/18/19 16:03 07/18/19 16:03 07/18/19 16:03 - Laboratory Result Diagrams: 07/18/19 17:27 07/18/19 17:27 Doctor's Discharge - Discharge Referrals: DANELLE OSCAR MD [Primary Care Provider] - Follow up as needed
[2019-07-19 04:57] LABS: ALBUMIN 4.4 g/dL (3.5-5.0); ALKALINE PHOSPHATASE 48 U/L (38-126); ASPARTATE AMINO TRANSFERASE 25 U/L (14-36); BILIRUBIN,TOTAL 0.6 mg/dL (0.2-1.3); TOTAL PROTEIN 6.9 g/dL (6.3-8.2)
[2019-07-19 05:09] LABS: APPEARANCE,URINE SLIGHTLY-CLOUDY; BILIRUBIN,URINE NEGATIVE (NEGATIVE); COLOR,URINE YELLOW; GLUCOSE, URINE NEGATIVE (NEGATIVE); KETONES,URINE 80 mg/dL (NEGATIVE); LEUKOCYTE ESTERASE,URINE NEGATIVE (NEGATIVE); NITRITE,URINE NEGATIVE (NEGATIVE); PROTEIN,URINE 30 mg/dL (NEGATIVE); URINE SPECIFIC GRAVITY 1.058
[2019-07-19] MEDS ORDERED: DIAZEPAM 5 MG TABLET PO ONE (05:52)
[2019-07-19] MEDS ORDERED: HYDROMORPHONE HCL INJ/PF 2 MG/ML AMPULE IV ONE ×2 (05:52→09:45)
--- NOTE | 2019-07-19 07:11 | ER Document Report ---
ED General Pain - General Mode of Arrival: Ambulatory Information source: Patient TRAVEL OUTSIDE OF THE [place] IN LAST 30 DAYS: No <KULDIP BATEMAN - Last Filed: 07/19/19 07:51> <MERCY HUGHES - Last Filed: 07/19/19 16:20> - General Chief Complaint: Flank Pain Stated Complaint: FALL/BACK PAIN Time Seen by Provider: 07/18/19 16:44 Primary Care Provider: [facility] [Provider Group] - Follow up tomorrow DANELLE OSCAR MD [Primary Care Provider] - Follow up as needed Notes: 49-year-old female patient presenting to the emergency department chief complaint of low back pain. Patient reports she fell about 24 hours prior to my evaluation. She states that she tripped over some toys in the house in the middle the night. She states that she thinks she hit her right lower back area onto a dresser. She reports she has chronic back pain and is on pain medication by pain management however she has never had a pain like this before. Patient reports no loss of control of bowel or bladder, no saddle anesthesia. Patient is able to ambulate. Patient reports she took some oxycodone with no relief. (KULDIP BATEMAN) - Related Data Allergies/Adverse Reactions: No Known Allergies Allergy (Verified 01/25/18 13:58) Past Medical History - General Information source: Patient - Social History Smoking Status: Never Smoker Frequency of alcohol use: Occasional Drug Abuse: None Family History: COPD Patient has homicidal ideation: No - Past Medical History Cardiac Medical History: Reports: Hx Hypertension Denies: Hx Coronary Artery Disease, Hx Heart Attack Pulmonary Medical History: Denies: Hx Asthma, Hx Bronchitis, Hx COPD, Hx Pneumonia Neurological Medical History: Denies: Hx Cerebrovascular Accident, Hx Seizures Renal/ Medical History: Denies: Hx Peritoneal Dialysis Musculoskeletal Medical History: Denies Hx Arthritis Psychiatric Medical History: Reports: Hx Depression Past Surgical History: Reports: Hx Section - x 2. Denies: Hx Pacemaker - Immunizations Immunizations up to date: Yes Hx Diphtheria, Pertussis, Tetanus Vaccination: Yes <KULDIP BATEMAN - Last Filed: 07/19/19 07:51> Review of Systems - Review of Systems Musculoskeletal: See HPI, Back pain -: Yes All other systems reviewed and negative <KULDIP BATEMAN - Last Filed: 07/19/19 07:51> Physical Exam <KULDIP BATEMAN - Last Filed: 07/19/19 07:51> - Vital signs Vitals: Temp Pulse Resp BP Pulse Ox 97.6 F 92 18 130/94 H 96 07/18/19 16:03 07/18/19 16:03 07/18/19 16:03 07/18/19 16:03 07/18/19 16:03 - Notes Notes: PHYSICAL EXAMINATION: GENERAL: Well-appearing, well-nourished and in moderate distress. HEAD: Atraumatic, normocephalic. EYES: Pupils equal round and reactive to light, extraocular movements intact, conjunctiva are normal. ENT: Nares patent, oropharynx clear without exudates. Moist mucous membranes. NECK: Normal range of motion, supple without lymphadenopathy LUNGS: Breath sounds clear to auscultation bilaterally and equal. No wheezes rales or rhonchi. HEART: Regular rate and rhythm without murmurs ABDOMEN: Soft, nontender, nondistended abdomen. No guarding, no rebound. No masses appreciated. Musculoskeletal: Tenderness to palpation to lumbar paraspinous area on the right side. No vertebral tenderness, step-off or deformity. NEUROLOGICAL: Face symmetric. Tongue protrudes midline. Extraocular motions intact. Pupils are 2 mm and equally reactive. Normal speech, normal gait. 5 out of 5 strength in both the distal and proximal upper and lower extremities bilaterally. Sensation is grossly intact throughout. Finger to nose testing normal. Pronator drift normal. PSYCH: Normal mood, normal affect. SKIN: Warm, Dry, normal turgor, no rashes or lesions noted. (KULDIP BATEMAN) Course - Laboratory Result Diagrams: 07/18/19 17:27 07/18/19 17:27 <KULDIP BATEMAN - Last Filed: 07/19/19 07:51> - Laboratory Result Diagrams: 07/18/19 17:27 07/18/19 17:27 - Diagnostic Test Radiology reviewed: Reports reviewed <MERCY HUGHES - Last Filed: 07/19/19 16:20> - Re-evaluation Re-evalutation: 07/19/19 07:50 Patient appears well, nontoxic, vital signs reviewed. Patient has been seen by 2 other APCs prior to my evaluation of the patient in the main side of the ER. She was given pain medications in triage which she states did not help. Patient reports she does take chronic pain medications, she states this pain is like nothing she has ever felt before. She is concerned that there is something very wrong. CT of the abdomen pelvis with IV contrast was ordered by triage pro vider, this showed no acute findings. Laboratory investigations are also unremarkable. We will send patient for MRI of the lumbar spine. Handoff will be given to oncoming shift. (KULDIP BATEMAN) 07/19/19 09:45 Patient continues with right SI joint tenderness. Patient does have bulging disc noted on MRI. Patient neurologically intact, no saddle anesthesia, no foot drop. Will give patient additional dose of medication prior to discharge. Patient encouraged to follow-up with her pain management doctor for further management. Patient is agreeable with this plan of care. (MERCY HUGHES) - Vital Signs Vital signs: Temp Pulse Resp BP Pulse Ox 97.8 F 67 16 134/76 H 97 07/19/19 11:00 07/19/19 11:00 07/19/19 11:00 07/19/19 11:00 07/19/19 11:00 - Laboratory Laboratory results interpreted by me: 07/19/19 04:50 Urine Protein 30 H Urine Ketones 80 H Urine Urobilinogen 2.0 H Discharge <KULDIP BATEMAN - Last Filed: 07/19/19 07:51> <MERCY HUGHES - Last Filed: 07/19/19 16:20> - Discharge Clinical Impression: Herniated disc Qualifiers: Spinal region: lumbar Qualified Code(s): M51.26 - Other intervertebral disc displacement, lumbar region Low back pain Qualifiers: Chronicity: acute Back pain laterality: unspecified Sciatica presence: with sciatica Sciatica laterality: sciatica of right side Qualified Code(s): M54.41 - Lumbago with sciatica, right side Condition: Stable Disposition: HOME, SELF-CARE Instructions: Ice Packs ([facility]), Low Back Pain ([facility]), Sciatica ([facility]) Additional Instructions: Return immediately for any new or worsening symptoms Followup with your primary care provider, call tomorrow to make a followup a ppointment Follow-up with your pain management doctor for further evaluation Prescriptions: Lidocaine [Lidoderm 5% (700 mg) Transdermal Patch] 1 patch TP DAILY PRN #10 adh..patch PRN Reason: Methocarbamol [Robaxin 500 Mg Tablet] 500 mg PO QID PRN #20 tablet PRN Reason: Referrals: DANELLE OSCAR MD [Primary Care Provider] - Follow up as needed [facility] [Provider Group] - Follow up tomorrow
--- NOTE | 2019-07-19 08:53 | RADIOLOGY REPORT (SQ) ---
EXAM DESCRIPTION: MRI LUMBAR SPINE WITHOUT IMAGES COMPLETED DATE/TIME: 07/19/2019 8:34 am REASON FOR STUDY: acute low back pain s/p fall COMPARISON: CT of the abdomen and pelvis with contrast from 07/18/2019. TECHNIQUE: Sagittal and Axial imaging includes T1, T2, STIR and gradient echo sequences. Coronal T2/ HASTE imaging. LIMITATIONS: None. FINDINGS: VISUALIZED UPPER ABDOMEN: No abnormality. SEGMENTATION: There are 5 lumbar-type vertebral bodies. There is no transitional segment at the lumb osacral junction. ALIGNMENT: Anatomic. VERTEBRAE: Intact. BONE MARROW: Normal. DISC SIGNAL: Mild desiccation of the L4-L5 and L5-S1 intervertebral discs POSTERIOR ELEMENTS: Intact. There is no pars interarticularis defect. HARDWARE: None in the spine. CORD AND CONUS: The conus medullaris terminates at the level of T12-L1 and it is normal in caliber an d signal intensity. SOFT TISSUES: No abnormality. L1-L2: No spinal or foraminal stenosis. L2-L3: No spinal or foraminal stenosis. L3-L4: No spinal or foraminal stenosis. L4-L5: No spinal or foraminal stenosis. L5-S1: Broad-based disc protrusion with an annular tear (image 7 of series 3) and without mass effect upon the nerve roots. There is no spinal or foraminal stenosis at L5-S1. LOWER THORACIC: No stenosis. SACRUM: Intact. OTHER: No other findings. IMPRESSION: 1. No acute fracture of the lumbar spine. 2. No spinal or foraminal stenosis. 3. Broad-based disc protrusion with an annular tear at L5-S1. TECHNICAL DOCUMENTATION: JOB ID: [id number] 2010 [employer]- All Rights Reserved Reading location - IP/workstation name: [email or web address]
[2019-07-19] MEDS ORDERED: LIDOCAINE 5% (700 MG) TRANSDERMAL ADH..PATCH TP ONE (09:45)
[2019-07-19 11:01] VITALS: BP 134/76
== END 2019-07-19 11:00 | disposition home or self-care (01) ==
LOC: ER 15:29
DX: M51.26 Other intervertebral disc displacement, lumbar region (principal); M54.41 Lumbago with sciatica, right side; M54.6 Pain in thoracic spine; R10.9 Unspecified abdominal pain; I10 Essential (primary) hypertension
CPT/HCPCS: 96376; 99284; 96374; 96375; 36415; 85025; 80076; 80048; 81001; 72148; 74177; J2270; J1170